=== PATIENT | male | born 1985 | race Caucasian/White ===

== ENCOUNTER 2020-10-03 20:51 | Emergency (ER) | payer MEDICAID, SELFPAY ==
--- NOTE | 2020-10-03 | XR_ITS ---
PROCEDURE INFORMATION: Exam: XR Right Hip Exam date and time: 10/03/2020 12:00 AM Age: 34 years old Clinical indication: Injury or trauma; Other: Fell off rolling lawnmower; Blunt trauma (contusions or hematomas); Right; Hip; Injury date: 10/03/2020 TECHNIQUE: Imaging protocol: XR Right hip. Views: 2 or 3 views hip with pelvis when performed. COMPARISON: No relevant prior studies available. FINDINGS: Bones/joints: Unremarkable. Lucency projecting over the right pubic symphysis is favored to be projectional. If the patient has referable symptoms, consider CT. Soft tissues: Unremarkable. IMPRESSION: No definite fracture. Please see above.
[2020-10-03 20:52] VITALS: BP 140/87; PULSE 94; RESP 19; TEMP 36.9; O2SAT 99; BMI 39.1
[2020-10-03 21:03] VITALS: PULSE 93; O2SAT 98
[2020-10-03 21:05] VITALS: BMI 39.1
--- NOTE | 2020-10-03 21:05 | XR_ITS ---
PROCEDURE INFORMATION: Exam: XR Chest Exam date and time: 10/03/2020 9:05 PM Age: 34 years old Clinical indication: Injury or trauma; Other: Fell off rolling lawnmower; Blunt trauma (contusions or hematomas); Injury date: 10/03/2020; Injury details: Trauma protocol; Additional info: Turned over lawnmower onto ride side TECHNIQUE: Imaging protocol: XR of the chest. Views: 4 or more views. COMPARISON: No relevant prior studies available. FINDINGS: Lungs: Unremarkable. No consolidation. Pleural spaces: Unremarkable. No pleural effusion. No pneumothorax. Heart/Mediastinum: Mild cardiac enlargement. Bones/joints: Old right clavicular fracture with hardware. No displaced rib fractures. IMPRESSION: No acute disease
--- NOTE | 2020-10-03 21:05 | XR_ITS ---
PROCEDURE INFORMATION: Exam: XR Left Hip Exam date and time: 10/03/2020 9:05 PM Age: 34 years old Clinical indication: Injury or trauma; Other: Fell off rolling lawnmower; Blunt trauma (contusions or hematomas); Left; Hip; Injury date: 10/03/2020; Additional info: Turned over lawnmower onto ride side TECHNIQUE: Imaging protocol: XR Left hip. Views: 2 or 3 views hip with pelvis when performed. COMPARISON: No relevant prior studies available. FINDINGS: Bones/joints: Unremarkable. No acute fracture. Soft tissues: Unremarkable. IMPRESSION: No acute findings.
--- NOTE | 2020-10-03 21:10 | XR_ITS ---
PROCEDURE INFORMATION: Exam: XR Right Knee Exam date and time: 10/03/2020 9:10 PM Age: 34 years old Clinical indication: Injury or trauma; Blunt trauma; Right; Injury date: 10/03/2020; Injury details: Fell off rolling lawnmower twisted RT knee and lower leg. Pain and swelling in RT knee lower leg and ankle; Additional info: Turned over lawnmower onto ride side TECHNIQUE: Imaging protocol: XR Right knee. Views: 3 views. COMPARISON: No relevant prior studies available. FINDINGS: Bones/joints: Slight blur on two views. Suboptimal lateral projection. Clinical correlation recommended for location of the right knee joint. Soft tissues: Normal. IMPRESSION: No definite fracture.
--- NOTE | 2020-10-03 21:10 | XR_ITS ---
PROCEDURE INFORMATION: Exam: XR Right Ankle Exam date and time: 10/03/2020 9:10 PM Age: 34 years old Clinical indication: Injury or trauma; Fall; Blunt trauma; Ankle; Right; Injury date: 10/03/2020; Injury details: Fell off rolling lawnmower; Additional info: Turned over lawnmower onto ride side TECHNIQUE: Imaging protocol: XR Right ankle. Views: 3 or more views. COMPARISON: CR XR KNEE RT 3V 10/03/2020 10:33 PM FINDINGS: Bones/joints: There is a mildly displaced oblique fracture through the distal right fibula. It enters the ankle mortise. The ankle mortise is slightly widened laterally and medially. There is mild lateral subluxation of the talus with respect to the tibia. There is a small lucency seen in the posterior tibia on the lateral projection. This is worrisome for a nondisplaced fracture. There is a small ossific structure projecting over the medial ankle mortise which appears chronic, but could be an age indeterminate avulsion fracture. There is some chronic cortical thickening along the lateral aspect of the distal tibia. Soft tissues: Moderate lateral and mild medial soft tissue swelling. IMPRESSION: 1. Mildly displaced fibular fracture 2. Probable posterior tibial fracture
--- NOTE | 2020-10-03 21:10 | XR_ITS ---
PROCEDURE INFORMATION: Exam: XR Right Tibia and Fibula Exam date and time: 10/03/2020 9:10 PM Age: 34 years old Clinical indication: Injury or trauma; Fall; Blunt trauma; Right; Injury date: 10/03/2020; Injury details: Fell off rolling lawnmower twisting lower leg and ankld; Additional info: Turned over lawnmower onto ride side TECHNIQUE: Imaging protocol: XR Right tibia and fibula. Views: 2 views. COMPARISON: CR XR KNEE RT 3V 10/03/2020 10:33 PM FINDINGS: Bones/joints: There is a mildly displaced fracture through the distal right fibula. There is a lucency through the distal tibia as well which is not definitely fracture. No malalignment. Soft tissues: Soft tissue swelling noted in the ankle. IMPRESSION: Distal fibular fracture. Possible tibial fracture. Recommend correlation with dedicated ankle radiographs.
--- NOTE | 2020-10-03 21:10 | XR_ITS ---
PROCEDURE INFORMATION: Exam: XR Right Femur Exam date and time: 10/03/2020 9:10 PM Age: 34 years old Clinical indication: Injury or trauma; Other: Fell off rolling lawnmower; Blunt trauma; Thigh or upper leg; Right; Injury date: 10/03/2020; Injury details: Fell off rolling lawnmower; Additional info: Turned over lawnmower onto ride side TECHNIQUE: Imaging protocol: XR Right femur. Views: 2 views. COMPARISON: No relevant prior studies available. FINDINGS: Bones/joints: Unremarkable. No acute fracture. Soft tissues: Unremarkable. IMPRESSION: No acute findings.
[2020-10-03 21:32] VITALS: BP 137/65; PULSE 83; O2SAT 98
[2020-10-03 21:38] LABS: Basophils # 0.1 K/mm3 (0-0.2); Basophils % 0.6 % (0.1-2.0); Eosinophils # 0.2 K/mm3 (0.0-0.4); Eosinophils % 1.2 % (0.1-12.0); Hematocrit 43.3 % (42.0-52.0); Hemoglobin 14.4 g/dL (14.1-18.0); Lymphocytes # 3.5 K/mm3 (0.7-4.5); Lymphocytes % 21.7 % (10-50); Mean Corpuscular HGB Conc 33.2 g/dL (31.8-35.4); Mean Corpuscular Volume 87.3 fl (80-94); Mean Platelet Volume 8.1 fl (7.4-10.4); Monocytes % 6.3 % (1.7-9.3); Neutrophils # 11.2 K/mm3 (1.8-7.8); Neutrophils % 70.2 % (37.0-80.0); Platelet Count 355 K/mm3 (142-424); Red Blood Count 4.96 M/mm3 (4.60-6.20); Red Cell Distribution Width 14.1 % (11.5-17.5); White Blood Count 15.9 K/mm3 (4.8-10.8)
[2020-10-03 21:41] LABS: MANUAL DIFFERENTIAL MANUAL DIFFERENTIAL (MANUAL DIFF)
[2020-10-03 21:44] LABS: Chloride 101 mmol/L (98-107); Sodium 140 mmol/L (136-145)
[2020-10-03 21:45] LABS: Potassium 3.8 mmoL/L (3.5-5.1)
[2020-10-03 21:47] LABS: Alanine Aminotransferase 57 U/L (12-78); Albumin Level 4.5 g/dl (3.5-5.0); Albumin/Globulin Ratio 1.6 (1.1-1.8); Alkaline Phosphatase 93 U/L (38-126); Anion Gap 12.8 mEq/L (5-15); Aspartate Amino Transferase 44 U/L (17-59); Bilirubin,Total 0.3 mg/dl (0.2-1.3); Blood Urea Nitrogen 17 mg/dl (9-20); Carbon Dioxide 30 mmol/L (22.0-30.0); Creatinine Clearance Estimated 197 mL/min (50-200); Estimated Glomerular Filt Rate 97 ml/min (>60); GFR (African American) 117 ML/MIN (>60); Globulin 2.8 g/dL (1.3-3.2); Total Protein,Serum 7.3 g/dl (6.3-8.2)
[2020-10-03 21:48] LABS: Calcium 9.4 mg/dl (8.4-10.2); Glucose 126 mg/dl (74-100)
[2020-10-03 21:49] LABS: Eosinophils % 1 % (0-3); Lymphocytes % 15 % (10-50); Monocytes % 3 % (2-9); Neutrophils % 77 % (42-76); Platelet Estimate Normal; RBC Morphology Normal; Total Cells Counted 100
[2020-10-03 22:01] VITALS: BP 135/81; PULSE 83; O2SAT 96
--- NOTE | 2020-10-03 22:15 | HMH.EDGENADL ---
ED Disposition Clinical Impression: Ankle fracture Qualifiers: Encounter type: initial encounter Fracture type: closed Laterality: right Qualified Code(s): S82.891A - Other fracture of right lower leg, initial encounter for closed fracture Knee injury Qualifiers: Encounter type: initial encounter Laterality: right Qualified Code(s): S89.91XA - Unspecified injury of right lower leg, initial encounter Strain of hip Qualifiers: Encounter type: initial encounter Laterality: right Qualified Code(s): S76.011A - Strain of muscle, fascia and tendon of right hip, initial encounter Disposition: Home, Self-Care Condition on Discharge: Fair Instructions: How to Use Crutches, DI for Ankle Fracture, DI for Knee Sprain, How to Take Care of Your Splint, How to Use a Knee Immobilizer Additional Instructions: Crutches, splint, knee immobilizer until follow-up with orthopedics. Ice and elevation of right knee and right ankle. Follow-up with orthopedics at [facility], Dr. Schulte, or at [facility] per your choice. Tylenol 3, then Percocet as needed for pain. Additional instructions for FRACTURED (BROKEN) BONE: See Dr. Schulte or [place] as soon as possible for further evaluation. Treat your splint like you would a cast: Do not get it wet (cover with a plastic bag while bathing or showering). If the splint feels too tight, you may loosen the neisha wrap covering it, but do not remove the splint. You may ice the fracture by applying an ice pack over the top of the splint, without removing the splint. Return to an emergency department immediately if you have uncontrollable pain, loss of feeling or inability to move your injured extremity. Additional instructions for CONTROLLED SUBSTANCES: You have been prescribed a medication that is a controlled substance. Controlled substances include pain medications known as opiates and sedative nerve medications known as benzodiazepines. Tramadol, fioricet, and gabapentin are also controlled substances. Some common opiates include: Codeine (such as Tylenol #3) Hydrocodone (Vicodin, Lortab, Lorcet, [place]) Oxycodone (Percocet, Percodan, Oxycodone, Oxy IR) Some common benzodiazepines include: Diazepam (Valium) Lorazepam (Ativan) Alprazolam (Xanax) Clonazepam (Klonopin) Oxazepam (Serax) All of these controlled substances are highly addictive and frequently abused. Misuse can and frequently does lead to addiction as well as overdose and . Medication should be stored in a locked cabinet or other secure storage unit. Do not store the medication in a motor vehicle. Short term supplies, 3 days or less, are prescribed because of the highly addictive nature of the medication. Any of the controlled substance medication NOT taken should be disposed of properly and NOT SAVED. The recommended method of disposing of unused medications is: Place the medicines in a sealable plastic bag. If the medicine is a solid, crush it or add water to dissolve it. Add something undesirable (cat litter, coffee grounds, etc.) Dispose of sealed bag in household trash Do not flush or pour unused medicines down a sink or drain. Controlled substances should not be shared, given away or sold. Because of the addictive nature and frequent abuse, these medications are sometimes stolen. These medications should be kept in a safe place where they cannot be stolen. Do not keep them in your car or purse. Lost or stolen prescriptions for controlled substances WILL NOT BE REFILLED in this emergency department, regardless of whether a police report was filed. Prescriptions: Oxycodone HCl/Acetaminophen [Percocet 5/325mg tablet] 1 tab PO Q6HP PRN #10 tab PRN Reason: Moderate To Severe Pain Transmission Status: Sent to [facility] Referrals: Provider,Referral, [Primary Care Provider] - - Critical Care Critical Care Time: No Attestation: On 10/03/20, the high probability of a clinically signifi
[2020-10-03 22:31] VITALS: BP 128/71; PULSE 91; O2SAT 97
[2020-10-04 00:30] VITALS: BP 133/72; PULSE 81; RESP 18; TEMP 36.9; O2SAT 97
== END 2020-10-04 00:33 | disposition home or self-care (01) ==
PROVIDERS: Emergency Provider Emergency Medicine
DX: S82.891A Other fracture of right lower leg, initial encounter for closed fracture (principal); S82.831A Other fracture of upper and lower end of right fibula, initial encounter for closed fracture; W30.89XA Contact with other specified agricultural machinery, initial encounter; Y92.89 Other specified places as the place of occurrence of the external cause; S76.011A Strain of muscle, fascia and tendon of right hip, initial encounter
CPT/HCPCS: 29505; 71045; 73502; 73552; 73562; 73564; 73590; 73610; 80053; 85007; 85025; 96374; 96375; 96376; 99284; J2405

== ENCOUNTER 2020-11-23 15:00 | Outpatient (RCR) | payer MEDICAID, SELFPAY | END 2020-11-23 16:30 | disposition home or self-care (01) | LOC: PT.CARL 15:00 | PROVIDERS: Visit Provider Orthopaedic Surgery | DX: S83.511A Sprain of anterior cruciate ligament of right knee, initial encounter (principal); S83.411A Sprain of medial collateral ligament of right knee, initial encounter; S83.241A Other tear of medial meniscus, current injury, right knee, initial encounter | CPT/HCPCS: 97010; 97014; 97033; 97110; 97163; G0283 ==

== ENCOUNTER 2021-04-06 08:00 | Outpatient (RCR) | payer MEDICAID, SELFPAY | END 2021-05-02 14:53 | disposition home or self-care (01) | LOC: PT.CARL 08:00 | PROVIDERS: Visit Provider Orthopaedic Surgery | DX: S83.511D Sprain of anterior cruciate ligament of right knee, subsequent encounter (principal) | CPT/HCPCS: 97010; 97014; 97110; 97112; 97116; 97140; 97163; 97164; 97530; G0283 ==

== ENCOUNTER 2021-04-29 23:48 | Emergency (ER) | payer MEDICAID, SELFPAY ==
[2021-04-29 23:48] VITALS: BP 127/72; PULSE 96; RESP 16; TEMP 36.6; O2SAT 98; BMI 39.9
[2021-04-30] VITALS: BP 128/71; PULSE 95; RESP 22; O2SAT 97
--- NOTE | 2021-04-30 00:03 | XR_ITS ---
PROCEDURE INFORMATION: Exam: XR Chest Exam date and time: 04/30/2021 12:03 AM Age: 35 years old Clinical indication: Other: Chest tighness; Prior surgery; Surgery date: 6+ months; Surgery type: Clavicle surgery 2013; Additional info: Chest tightness TECHNIQUE: Imaging protocol: XR of the chest. Views: 2 views. COMPARISON: CR XR CHEST AP 10/03/2020 10:27 PM FINDINGS: Lungs: Unremarkable. No consolidation. Pleural spaces: Unremarkable. No pleural effusion. No pneumothorax. Heart/Mediastinum: Calcified mediastinal lymph nodes. No cardiomegaly. Bones/joints: Postsurgical changes of the right clavicle. IMPRESSION: No acute findings.
--- NOTE | 2021-04-30 00:04 | HMH.EDCP ---
ED Disposition Clinical Impression: Atypical chest pain, Cervical radicular pain Disposition: Home, Self-Care Condition on Discharge: Good Instructions: DI for Atypical Chest Pain Additional Instructions: see pcp for follow up Referrals: Provider,Referral, [Primary Care Provider] - - Critical Care Critical Care Time: No Attestation: On , the high probability of a clinically significant, sudden or life threatening deterioration of the following system(s) required my full and direct attention, intervention and personal management. The time I documented below is in addition to time spent performing reported procedures but includes the following listed in this critical care notation. Medical Decision Making - Medical Records Medical records reviewed: Yes: I reviewed the patient's medical records. - [place] Inquiry Pt receiving controlled substance: No Vital Signs: 04/29/21 23:48 Temperature 97.8 F Temperature Source Oral Pulse Rate [Right Radial] 96 H Respiratory Rate 16 Blood Pressure [Right Arm] 127/72 Blood Pressure Mean [Right Arm] 90 Blood Pressure Source [Right Arm] Automatic Cuff Blood Pressure Position [Right Arm] Sitting 02 Sat by Pulse Oximetry 98 Oxygen Delivery Method Room Air - Lab Data Lab results reviewed: Yes: I reviewed the patient's lab results. Lab Results 04/29/21 23:59: SARS-CoV-2 (PCR) Not detected, Influenza A Untype (PCR) Not detected, Influenza Type B (PCR) Not detected 04/30/21 00:00: WBC 12.7 H, RBC 5.03, Hgb 15.0, Hct 44.3, MCV 88.0, MCH 29.9, MCHC 33.9, RDW 13.7, Plt Count 347, MPV 8.1, Neut % (Auto) 63.9, Lymph % (Auto) 26.2, [place] % (Auto) 8.1, Eos % (Auto) 1.4, Baso % (Auto) 0.4, Neut # (Auto) 8.1 H, Lymph # (Auto) 3.3, [place]lee # (Auto) 1.0, Eos # (Auto) 0.2, Baso # (Auto) 0.1, ESR 3 04/30/21 00:00: Sodium 137, Potassium 3.8, Chloride 103, Carbon Dioxide 29, Anion Gap 8.8, BUN 15, Creatinine 0.70, Estimated Creat Clear 255, Estimated GFR 128, Est GFR ( Amer) 155, Glucose 122 H, Calcium 9.2, Total Bilirubin 0.4, Direct Bilirubin 0.2, Conjugated Bilirubin 0.0, Indirect Bilirubin 0.2, Unconjugated Bilirubin 0.2, AST 44, ALT 51, Alkaline Phosphatase 86, Troponin I < 0.01, C-Reactive Protein 12.7 H, Total Protein 7.0, Albumin 4.3 Result diagrams: 04/30/21 00:00 04/30/21 00:00 Orders (Tests/Meds): ED MEDICATIONS Generic Name Dose Route Start Last Admin Trade Name Freq PRN Reason Stop Dose Admin Sodium Chloride 1,000 mls @ 999 mls/hr 04/30/21 00:15 04/30/21 00:24 Sod Chlor 0.9% 1000ml Bag IV 04/30/21 01:15 999 mls/hr .Q1H1M YAZAN Administration Discontinued Medications Generic Name Dose Route Start Last Admin Trade Name Freq PRN Reason Stop Dose Admin Aspirin 243 mg 04/29/21 23:49 04/29/21 23:51 Aspirin 81mg Chewable Tablet PO 04/29/21 23:50 243 mg ONCE ONE Administration Ketorolac Tromethamine 30 mg 04/30/21 00:03 04/30/21 00:24 Ketorolac 30mg/Ml Vial IV 04/30/21 00:04 30 mg ONCE ONE Administration Methylprednisolone Sodium Succinate 125 mg 04/30/21 00:03 04/30/21 00:24 Methylprednisolone Sod Succ 125mg Vial IV 04/30/21 00:04 125 mg ONCE ONE Administration ORDERS Category Date Time Status Troponin I Q3H Lab 04/30/21 03:15 Ordered Troponin I Q3H Lab 04/30/21 06:15 Ordered - Radiology Data #1 Image(s): Chest Image Reviewed: Yes I have reviewed radiologist's interpretation Preliminary Findings: Normal/NAD - ECG Data Tracing #1 Normal Sinus Rhythm: Yes Ischemic changes: non-specific ST-T wave changes Medical Decision Narrative: pt has chest pain with stable exam and labs and lt upper pain appears to be from neck Chest Pain HPI - General Chief Complaint: Chest Pain Stated Complaint: chest pain Time Seen by Provider: 04/30/21 00:05 Mode of Arrival: Ambulatory Source of Information: Patient, Medical Record Limitations: No Limitations Description of Symptoms (Recalled from ER Tri
[2021-04-30 00:10] LABS: Basophils # 0.1 K/mm3 (0-0.2); Basophils % 0.4 % (0.1-2.0); Eosinophils # 0.2 K/mm3 (0.0-0.4); Eosinophils % 1.4 % (0.1-12.0); Hematocrit 44.3 % (42.0-52.0); Lymphocytes # 3.3 K/mm3 (0.7-4.5); Lymphocytes % 26.2 % (10-50); Mean Corpuscular HGB Conc 33.9 g/dL (31.8-35.4); Mean Corpuscular Hemoglobin 29.9 pg (27.0-31.2); Mean Platelet Volume 8.1 fl (7.4-10.4); Monocytes % 8.1 % (1.7-9.3); Neutrophils # 8.1 K/mm3 (1.8-7.8); Neutrophils % 63.9 % (37.0-80.0); Platelet Count 347 K/mm3 (142-424); Red Blood Count 5.03 M/mm3 (4.60-6.20); Red Cell Distribution Width 13.7 % (11.5-17.5); White Blood Count 12.7 K/mm3 (4.8-10.8)
[2021-04-30 00:11] LABS: Coronavirus 19, PCR Not Detected (NotDetected); Influenza A, PCR Not Detected (NotDetected); Influenza B, PCR Not Detected (NotDetected)
[2021-04-30 00:15] LABS: Alanine Aminotransferase 51 U/L (12-78); Albumin Level 4.3 g/dl (3.5-5.0); Alkaline Phosphatase 86 U/L (38-126); Anion Gap 8.8 mEq/L (5-15); Aspartate Amino Transferase 44 U/L (17-59); Bilirubin,Direct 0.2 mg/dl (0.0-0.4); Bilirubin,Indirect 0.2 mg/dL (0.0-0.9); Bilirubin,Total 0.4 mg/dl (0.2-1.3); Bilirubin,Unconjugated 0.2 mg/dL (0.0-1.1); Blood Urea Nitrogen 15 mg/dl (9-20); Calcium 9.2 mg/dl (8.4-10.2); Carbon Dioxide 29 mmol/L (22.0-30.0); Chloride 103 mmol/L (98-107); Creatinine Clearance Estimated 255 mL/min (50-200); Estimated Glomerular Filt Rate 128 ml/min (>60); GFR (African American) 155 ML/MIN (>60); Glucose 122 mg/dl (74-100); Potassium 3.8 mmoL/L (3.5-5.1); Sodium 137 mmol/L (136-145)
[2021-04-30 00:20] LABS: C-Reactive Protein 12.7 mg/L (0-4)
[2021-04-30 00:30] LABS: Troponin I < 0.01 ng/ml (0.00-0.034)
[2021-04-30 00:38] LABS: Erythrocyte Sedimentation Rate 3 mm/hr (0-15)
[2021-04-30 01:00] VITALS: BP 126/71; RESP 26; O2SAT 97
[2021-04-30 01:30] VITALS: BP 113/68; PULSE 78; RESP 21; O2SAT 96
[2021-04-30 02:00] VITALS: BP 126/72; PULSE 82; RESP 20; O2SAT 95
[2021-04-30 02:59] VITALS: BP 122/74; PULSE 81; RESP 21; TEMP 36.7; O2SAT 95
--- NOTE | 2021-04-30 23:43 | ECG_ITS ---
APPROVED REPORT Exam: Resting ECG HR:98 bpm ECG Measurements Heart Rate 98 AXES NC 152 P 50 QRSd 110 QRS 35 QT 352 T 65 QTc 407 Conclusion SINUS RHYTHM INCOMPLETE RIGHT BUNDLE BRANCH BLOCK [90+ ms QRS DURATION, TERMINAL R IN V1/V2, 40+ ms S IN I/aVL/V4/V5/V6] BORDERLINE ECG UNCONFIRMED REPORT Electronically signed by : Jaime Ortiz MD 04/30/2021 08:28:50
== END 2021-04-30 03:04 | disposition home or self-care (01) ==
PROVIDERS: Emergency Provider Emergency Medicine
DX: R07.89 Other chest pain (principal); M54.2 Cervicalgia
CPT/HCPCS: 71046; 80048; 80076; 84484; 85025; 85651; 86140; 93005; 96365; 96375; 99283; C9803; U0003; U0005

== ENCOUNTER 2021-11-02 08:14 | Emergency (ER) | payer MEDICAID, SELFPAY ==
[2021-11-02 08:22] VITALS: BP 137/65; PULSE 83; RESP 16; TEMP 36.6; O2SAT 99; BMI 44.3
--- NOTE | 2021-11-02 08:26 | XR_ITS ---
FINAL REPORT CLINICAL HISTORY: old injury, pain today FINDINGS: CLAVICLE COMPLETE Three views of the right clavicle were obtained. There is a chronic fracture of the clavicle with screw plate and multiple screws. 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 Several foreign bodies are seen superior to the clavicle measuring up to 6 mm. There is mild AC joint degenerative change. IMPRESSION: Postsurgical changes as detailed above. Several foreign bodies superior to the clavicle. Reviewed, Interpreted and Dictated by Sunny Licea III, MD Transcribed by Marry Harris Authenticated and [facility]
--- NOTE | 2021-11-02 08:26 | XR_ITS ---
FINAL REPORT CLINICAL HISTORY: old injury, pain today FINDINGS: RIGHT SHOULDER Three views of the right shoulder were obtained. There is a chronic fracture of the clavicle with screw plate and multiple screws. 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 Several foreign bodies are seen superior to the clavicle measuring up to 6 mm. There is mild AC joint degenerative change. IMPRESSION: Postsurgical changes as detailed above. Several foreign bodies superior to the clavicle. Reviewed, Interpreted and Dictated by Sunny Licea III, MD Transcribed by Marry Harris Authenticated and [facility]
--- NOTE | 2021-11-02 08:26 | EXP.UTC ---
Discharge Plan Disposition Patient Disposition: Home, Self-Care Condition: Good Prescriptions Prescriptions: New methylprednisolone 4 mg Tablets,Dose Pack 4 mg PO DIRECTED Qty: 21 0RF No Action oxycodone-acetaminophen 1 EACH tablet 1 tab PO Q6HP PRN (Reason: Moderate To Severe Pain) Qty: 10 0RF Referrals Follow up/Referrals: Provider,Referral, MD [Primary Care Provider] - See instructions Activity Restrictions/Add. Instructions Additional Instructions/Restrictions: Go home and rest. It would be best if you rested tomorrow too. No heavy lifting. Take the oral medications as directed. Don't start the oral steroids (medrol dose pack) until tomorrow, since you had the shots in here today. Follow up with your regular doctor. GO TO THE ER FOR ANY WORSENING SYMPTOMS OR CONCERN, ESPECIALLY BOWEL OR BLADDER ISSUES, SADDLE AREA NUMBNESS, FEVER, ETC Clinical Impressions Clinical Impression: Acute pain of right shoulder, Pain of right clavicle Stand Alone Forms Stand Alone Forms: Work/School Release Discharge ED Provider: Mau Gustafson [facility] General Stated complaint: collar bone pain, old injury Time Seen by Provider: 11/02/21 08:25 History of Present Illness Provider Complaint: He c/o right shoulder and clavicular area pain for the past 2 days. HE has a history of fracturing his collar bone several years ago and having to have it repaired surgically. He denies any recent injury, fall, or mva. He denies any fever or chills. Related Data Previous Rx's Medication Instructions Recorded oxycodone-acetaminophen 5 mg-325 1 tab PO Q6HP PRN Moderate To 10/04/20 mg tablet Severe Pain #10 tabs methylprednisolone 4 mg tablets in 4 mg PO DIRECTED #21 tabs 11/02/21 a dose pack Allergies Allergy/AdvReac Type Severity Reaction Status Date / Time No Known Allergies Allergy Verified 11/02/21 08:31 [facility] Social History Smoking Status: Unknown if ever smoked alcohol intake: never current occupational status: employed ROS Obtained: Yes All systems reviewed & no additional complaints except as documented Constitutional Constitutional: Denies chills, Denies fever(s) and Denies malaise Eyes Eyes: Denies dry eyes ENT Ears, Nose, Mouth, and Throat: Denies disequilibrium, Denies nasal congestion and Denies sore throat Cardiovascular Cardiovascular: Denies chest pain, Denies dyspnea, Denies edema, Denies lightheadedness and Denies palpitations Respiratory Respiratory: Denies chest congestion, Denies cough and Denies dyspnea Gastrointestinal Gastrointestingal: Denies cramping, diarrhea, nausea or vomiting Genitourinary Male Genitourinary: Denies difficulty urinating Musculoskeletal Musculoskeletal: Reports as per HPI Integumentary/Breasts Skin/Breast: Denies rash Neurologic Neurologic: Denies disequilibrium Endocrine Endocrine: Denies palpitations Hematologic/Lymphatic Henatologic/Lymphatic: Reports system reviewed and no additional complaints, except as documented Physical Exam General General appearance: alert and in no apparent distress Head Head exam: atraumatic, normocephalic and normal inspection Eye Eye exam: Present normal appearance, PERRL and EOMI ENT ENT exam: Present mucous membranes moist and normal external ear exam Expanded ENT Exam TM/Canal exam: Bilateral TM: erythema, bulging and effusion Nose exam: Absent sinus tenderness Nasal speculum exam: Bilateral: normal Throat exam: Present tonsillar erythema and tonsillomegaly Neck Neck exam: Present normal inspection, full ROM and trachea midline; Absent meningismus or lymphadenopathy Chest Chest inspection: Present normal inspection and symmetric chest wall rise; Absent tenderness Respiratory Respiratory exam: Present normal lung sounds bilaterally; Absent respiratory distress Cardiovascular Cardiovascular exam: Present regular rate and normal rhythm; Ab
[2021-11-02 09:59] VITALS: BP 137/65; PULSE 83; RESP 16; TEMP 36.6
== END 2021-11-02 10:00 | disposition home or self-care (01) ==
PROVIDERS: Emergency Provider Nurse Practitioner Family
DX: M25.511 Pain in right shoulder (principal)
CPT/HCPCS: 73000; 73030; 96372; 99212; G0463

== ENCOUNTER 2022-09-25 20:22 | Emergency (ER) | payer MEDICAID, SELFPAY ==
[2022-09-25 20:32] VITALS: BP 168/99; PULSE 101; RESP 16; TEMP 36.8; O2SAT 97; BMI 43.7
[2022-09-25 21:05] VITALS: BP 134/71; PULSE 71; RESP 17; TEMP 36.6; O2SAT 97
--- NOTE | 2022-09-27 03:21 | HMH.EDGENADL ---
Discharge Plan Disposition Patient Disposition: Home, Self-Care Prescriptions Prescriptions: No Action methylprednisolone 4 mg Tablets,Dose Pack 4 mg PO DIRECTED Qty: 21 0RF oxycodone-acetaminophen 1 EACH tablet 1 tab PO Q6HP PRN (Reason: Moderate To Severe Pain) Qty: 10 0RF Referrals Follow up/Referrals: Provider,Referral, [Primary Care Provider] - See instructions Activity Restrictions/Add. Instructions Additional Instructions/Restrictions: Please follow-up with your primary care provider. Please return to the emergency department if you develop any new or worsening symptoms or become concerned for your health. Please take [id number] steroid cream as needed. Clinical Impressions Clinical Impression: Skin irritation, Toxic reaction to chemical Instructions Patient Instructions: DI for Skin Abscess Discharge ED Provider: Bartolome Mike General Adult HPI General Chief complaint: Skin/Abscess/Foreign Body Stated complaint: poss chemical alvarado on feet 09/25 Time Seen by Provider: 09/25/22 20:41 Mode of Arrival: Ambulatory Source of Information: Patient Limitations: No Limitations Description of Symptoms (Recalled from ER Triage Doc. 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 pt c/o chemical alvarado bilaterally on his feet. pt c/o tingling and a rash on the tops of his feet. pt states the chemicals used were for vegetation control and called sure guard, fenally, and inuce. History of Present Illness HPI narrative: 36-year-old male, previously healthy. Presents with irritation to his bilateral feet after being exposed to pesticide chemicals while working today. Reports normal sensation, denies open wounds. Reports that he may have been exposed to these chemicals in the past as well. Pesticide names as above. Denies any significant pain at this time. Reports rash bilateral feet. Related Data Previous Rx's Medication Instructions Recorded oxycodone-acetaminophen 5 mg-325 1 tab PO Q6HP PRN Moderate To 10/04/20 mg tablet Severe Pain #10 tabs methylprednisolone 4 mg tablets in 4 mg PO DIRECTED #21 tabs 11/02/21 a dose pack Allergies Allergy/AdvReac Type Severity Reaction Status Date / Time No Known Allergies Allergy Verified 09/25/22 20:42 [facility] Disclaimer: The information contained in this section may have been updated after the patient was seen, as this information can be updated by other users. Social History (Updated 11/02/21 @ 20:16 by Mau Gustafson APRN) Smoking Status: Current every day smoker alcohol intake: never current occupational status: employed Travel in the last 8 weeks: None ROS Obtained: Yes All systems reviewed & no additional complaints except as documented Physical Exam General General appearance: alert and in no apparent distress Head Head exam: atraumatic and normocephalic Eye Eye exam: Present normal appearance, PERRL and EOMI ENT ENT exam: Present normal oropharynx and normal external ear exam Neck Neck exam: Present normal inspection and full ROM Chest Chest inspection: Present normal inspection and symmetric chest wall rise; Absent tenderness Respiratory Respiratory exam: Present normal lung sounds bilaterally; Absent respiratory distress Cardiovascular Cardiovascular exam: Present regular rate and normal rhythm Abdominal Exam Abdominal exam: Present soft; Absent distention, tenderness or guarding Extremities Exam Extremities exam: Present other (Mild erythema to the dorsum of bilateral feet without ulceration, normal sensation, nontender.) Back Exam Back exam: Present normal inspection; Absent tenderness Neurological Exam Neurological exam: Present alert and oriented X3; Absent motor sensory deficit Psychiatric Psychiatric exam: Present normal affect and normal mood Skin Skin exam: Present warm, dry and normal color Lymphatic Lymphatic Findings: no adenopathy Medical Decision Making Medical Records Medical records review
== END 2022-09-25 21:05 | disposition home or self-care (01) ==
PROVIDERS: Emergency Provider Emergency Medicine
DX: R21 Rash and other nonspecific skin eruption; Y99.0 Civilian activity done for income or pay; T60.8X1A Toxic effect of other pesticides, accidental (unintentional), initial encounter; F17.200 Nicotine dependence, unspecified, uncomplicated
CPT/HCPCS: 99282